=== PATIENT | male | born 1990 | race Caucasian/White ===

== ENCOUNTER 2018-10-21 12:08 | Emergency (ER) | payer MEDICAID ==
[~2018-10-21] VITALS: Ht 188 cm; Wt 76.3 kg
--- NOTE | 2018-10-21 12:46 | NUR ---
PT. IS A & O X 4 WITH C/O RIGHT FLANK PAIN AND FEELING LIKE HE HAS A UTI. PT. IS PINK, WARM AND DRY. LUNGS ARE CTA. PT.'S ABD. IS SOFT AND FLAT WITH BS + X 4 QUADS. PT.'S URINE WAS COLLECTED AND SENT. PT. STATES HE DOESN'T WANT A BLANKET AT THIS TIME.
[2018-10-21 12:49] LABS: BASOPHILS # (AUTO) 0.03 x10^3/uL (0-0.1); BASOPHILS % (AUTO) 0 % (0-1); EOSINOPHILS % (AUTO) 1 % (1-7); LYMPHOCYTES # (AUTO) 2.91 x10^3/uL (1-3.4); LYMPHOCYTES % (AUTO) 36 % (22-44); MD NO; MEAN CORPUSCULAR HEMOGLOBIN 30.8 pg (27.5-34.5); MEAN CORPUSCULAR HGB CONC 33.1 g/dL (33.2-36.2); MEAN CORPUSCULAR VOLUME 92.8 fL (81-97); MEAN PLATELET VOLUME 8.5 fL (7.4-10.4); MONOCYTES # (AUTO) 0.56 x10^3/uL (0.2-0.8); MONOCYTES % (AUTO) 7 % (2-9); NEUTROPHILS # (AUTO) 4.51 x10^3/uL (1.8-6.8); NEUTROPHILS % (AUTO) 56 % (42-75); PLATELET COUNT 206 x10^3/uL (130-400); RED BLOOD COUNT 5.03 x10^6/uL (4.38-5.82); RED CELL DISTRIBUTION WIDTH 14.8 % (9.4-14.8)
[2018-10-21 13:02] LABS: ANION GAP 7 mmol/L (5-15); CALCIUM 8.7 mg/dL (8.5-10.1); CHLORIDE 108 mmol/L (98-107)
[2018-10-21 13:28] LABS: MICROSCOPIC NOT IND
--- NOTE | 2018-10-21 13:30 | NUR ---
PT. STATES HE HAS TO GO TO A MEETING. PT. SIGNED OUT AMA.
[2018-10-21 13:31] VITALS: BP 138/68
[2018-10-21 13:32] LABS: CULTURE INDICATED? NO
== END 2018-10-21 14:12 | disposition left against medical advice (07) ==
LOC: ED 13:22
DX: R30.0 Dysuria (principal); R10.9 Unspecified abdominal pain; F17.200 Nicotine dependence, unspecified, uncomplicated
CPT/HCPCS: 36415; 80048; 81003; 85025; 99283